=== PATIENT | female | born 1945 ===

== ENCOUNTER 2023-10-03 12:00 | Inpatient (IN) | payer OTHER ==
[~2023-10-03] VITALS: Ht 162.6 cm; Wt 70.3 kg
[2023-10-03] MEDS ORDERED: LIPITOR20 MG PO (16:16)
[2023-10-03] MEDS ORDERED: METFORMIN HCL500 M3 PO (16:17)
[2023-10-03] MEDS ORDERED: SYNTHROID75 MCG PO (16:17)
[2023-10-03] MEDS ORDERED: HORIZANT300 MG PO (16:17)
[2023-10-03] MEDS ORDERED: OMEGA-31000 MG PO (16:17)
[2023-10-03] MEDS ORDERED: ATACAND16 MG PO (16:18)
[2023-10-09] MEDS ORDERED: TRANEXAMIC ACID 100MG/1ML (1000MG) AMPUL IV ONE (08:29)
[2023-10-09] MEDS ORDERED: CEFAZOLIN SODIUM 1,000 MG VIAL ONE (08:29)
[2023-10-09] MEDS ORDERED: KETOROLAC TROMETHAMINE 60 MG VIAL IM ONE (13:20)
[2023-10-09] MEDS ORDERED: LIDOCAINE HCL 1%/EPINEPHRINE 20ML VIAL IJ ONE (13:21)
[2023-10-09] MEDS ORDERED: BUPIVACAINE HCL/MPF 0.5% 30ML VIAL ONE (13:21)
[2023-10-09] MEDS ORDERED: POLYMYXIN B SULFATE 500,000 U VIAL ONE (13:21)
[2023-10-09] MEDS ORDERED: VANCOMYCIN HCL 1,000 MG VIAL ONE (13:22)
[2023-10-09] MEDS ORDERED: TRANEXAMIC ACID 100MG/1ML (1000MG) AMPUL IV SCH (15:00)
[2023-10-09] MEDS ORDERED: MORPHINE SULFATE 4 MG/ML CARTRIDGE IV SCH (15:00)
[2023-10-09] MEDS ORDERED: POVIDONE-IODINE 118 ML BOTT TOP ONE (16:23)
[2023-10-09] MEDS ORDERED: MORPHINE SULFATE 2 MG/ML CARTRIDGE IV NR (17:15)
[2023-10-09] MEDS ORDERED: MORPHINE SULFATE 4 MG/ML CARTRIDGE IV PRN (17:15)
[2023-10-09] MEDS ORDERED: ONDANSETRON HCL 2 MG/ML VIAL IV PRN (17:15)
[2023-10-09] MEDS ORDERED: SODIUM CHLORIDE 0.45 % 1,000 ML IV SCH (17:15)
[2023-10-09] MEDS ORDERED: MORPHINE SULFATE 4 MG/ML VIAL IV ONE ×3 (18:00→19:00)
[2023-10-09] MEDS ORDERED: CEFAZOLIN SODIUM 1,000 MG VIAL IV SCH (18:00)
[2023-10-09] MEDS ORDERED: hydrALAZINE HCL 20 MG VIAL IV ONE (20:15)
[2023-10-09] MEDS ORDERED: GENTAMICIN SULFATE 40 MG/ML VIAL ONE (20:21)
[2023-10-09] MEDS ORDERED: hydrALAZINE HCL 20 MG VIAL IV PRN (20:30)
[2023-10-09 20:44] LABS: HEMOGLOBIN 12.3 g/dL (12.0-15.00); RED BLOOD COUNT 3.92 M/uL (4.00-6.00)
[2023-10-09] MEDS ORDERED: GENTAMICIN SULFATE 40 MG/ML VIAL IV SCH (21:00)
[2023-10-10] MEDS ORDERED: LEVOTHYROXINE SODIUM 75 MCG TABLET PO SCH (06:00)
[2023-10-10 07:37] LABS: HEMATOCRIT 32.5 % (36.0-45.00); HEMOGLOBIN 10.9 g/dL (12.0-15.00); MEAN CELL VOLUME 93.4 fL (80.00-100.00); MEAN CORPUSCULAR HEMOGLOBIN 31.4 pg (27.00-32.0); MEAN CORPUSCULAR HGB CONC 33.6 g/dl (32.0-36.0); PLATELET COUNT 357 K/uL (150-450); RED BLOOD COUNT 3.48 M/uL (4.00-6.00); RED CELL DISTRIBUTION WIDTH 12.6 % (11.5-14.5)
[2023-10-10] MEDS ORDERED: BACTRIM DS TAB1 EACH PO (08:49)
[2023-10-10] MEDS ORDERED: TRAM1TAB98 PO (08:49)
[2023-10-10] MEDS ORDERED: CANDESARTAN CILEXETIL 16 MG TABLET PO SCH (09:00)
[2023-10-10] MEDS ORDERED: ATORVASTATIN CALCIUM 20 MG TABLET PO SCH (09:00)
[2023-10-10] MEDS ORDERED: SENNA/DOCUSATE SODIUM 1 TAB TABLET PO SCH (09:00)
[2023-10-10] MEDS ORDERED: BACITRACIN 28.35 GM OINT.TUBE TOP SCH (09:00)
[2023-10-10] MEDS ORDERED: IRON FUM,PS/FOLIC/BCOMP,C NO.9 1 CAP CAPSULE PO SCH (09:00)
== END 2023-10-10 11:25 | disposition home or self-care (01) | DRG 483 ==
LOC: O/R 10-09 05:33 → SURH 10-09 12:00 → ICU 10-09 12:00 → SURH 10-09 14:00
PROVIDERS: ADMIT Orthopaedic Surgery Sports Medicine; ATTEND Orthopaedic Surgery Sports Medicine
PROC: 0LS30ZZ Reposition Right Upper Arm Tendon, Open Approach (ICD-10-PCS; 2023-10-09)
PROC: 0PUF0JZ Supplement Right Humeral Shaft with Synthetic Substitute, Open Approach (ICD-10-PCS; 2023-10-09)
PROC: 0RRJ00Z Replacement of Right Shoulder Joint with Reverse Ball and Socket Synthetic Substitute, Open Approach (ICD-10-PCS; principal; 2023-10-09 14:00)
DX: M19.011 Primary osteoarthritis, right shoulder (principal); M75.121 Complete rotator cuff tear or rupture of right shoulder, not specified as traumatic; Z20.822 Contact with and (suspected) exposure to COVID-19

== ENCOUNTER 2023-10-16 11:09 | Emergency (ER) | payer OTHER ==
[~2023-10-16] VITALS: Ht 160 cm; Wt 72.6 kg
[~2023-10-16 11:09] MED LIST: ATACAND16 MG PO; BACTRIM DS TAB1 EACH PO; HORIZANT300 MG PO; LIPITOR20 MG PO; METFORMIN HCL500 M3 PO; OMEGA-31000 MG PO; SYNTHROID75 MCG PO; TRAM1TAB98 PO
[2023-10-16] MEDS ORDERED: KETOROLAC TROMETHAMINE 30 MG VIAL IM ONE (14:45)
[2023-10-16] MEDS ORDERED: KETOROLAC TROMETHAMINE 30 MG VIAL ONE ×2 (14:45→15:51)
== END 2023-10-16 16:29 | disposition home or self-care (01) ==
LOC: ER 11:09
DX: S09.8XXA Other specified injuries of head, initial encounter (principal); W19.XXXA Unspecified fall, initial encounter; Y93.89 Activity, other specified; Y92.89 Other specified places as the place of occurrence of the external cause; Y99.8 Other external cause status; I10 Essential (primary) hypertension; E11.9 Type 2 diabetes mellitus without complications; Z79.84 Long term (current) use of oral hypoglycemic drugs
CPT/HCPCS: 70450; 72125; 73020; 96372; 99284; J1885